=== PATIENT | male | born 1965 | race Two or more races ===

== ENCOUNTER 2019-09-29 11:13 | Emergency (ER) | payer MEDICAID, OTHER, SELFPAY ==
[~2019-09-29] VITALS: Ht 172.7 cm; Wt 72.7 kg
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
[2019-09-29] MEDS ORDERED: HTN (11:38)
[2019-09-29] MEDS ORDERED: NIFE-7 PO (11:42)
[2019-09-29] MEDS ORDERED: CARV-39 PO (11:42)
[2019-09-29] MEDS ORDERED: ONDANSETRON 2MG/ML, 2ML IVPush ONE (12:00)
[2019-09-29] MEDS ORDERED: HYDROmorphone 2 MG/ML, 1ML IVPush PRN (12:00)
[2019-09-29 12:18] LABS: MEAN CORPUSCULAR HEMOGLOBIN 31.4 pg (27.5-34.5); MEAN CORPUSCULAR HGB CONC 33.5 g/dL (33.2-36.2); MEAN CORPUSCULAR VOLUME 93.8 fL (81-97); MEAN PLATELET VOLUME 7.3 fL (7.4-10.4); PLATELET COUNT 340 x10^3/uL (130-400); RED BLOOD COUNT 5.57 x10^6/uL (4.38-5.82); RED CELL DISTRIBUTION WIDTH 13.3 % (9.4-14.8)
[2019-09-29 12:30] LABS: ALANINE AMINOTRANSFERASE 22 U/L (12-78); ALBUMIN 3.9 g/dL (3.4-5.0); ANION GAP 5 mmol/L (5-15); CHLORIDE 110 mmol/L (98-107); CREATININE 1.74 mg/dL (0.7-1.3)
[2019-09-29 12:32] LABS: ALKALINE PHOSPHATASE 103 U/L (45-117); BILIRUBIN,TOTAL 1.5 mg/dL (0.2-1.0); TOTAL PROTEIN 7.4 g/dL (6.4-8.2)
--- NOTE | 2019-09-29 12:33 | NUR ---
ABBIE RN BS FOR U/S IV ATTEMPT
[2019-09-29 12:45] LABS: BASOPHILS # (AUTO) 0.05 x10^3/uL (0-0.1); BASOPHILS % (AUTO) 0 % (0-1); EOSINOPHILS # (AUTO) 0.17 x10^3/uL (0-0.4); EOSINOPHILS % (AUTO) 1 % (1-7); LYMPHOCYTES # (AUTO) 2.32 x10^3/uL (1-3.4); LYMPHOCYTES % (AUTO) 12 % (22-44); MD SCAN; MONOCYTES % (AUTO) 3 % (2-9); NEUTROPHILS # (AUTO) 16.15 x10^3/uL (1.8-6.8); NEUTROPHILS % (AUTO) 84 % (42-75)
--- NOTE | 2019-09-29 12:53 | NUR ---
20ga Piv placed to right forearm w/ U.S. Patient then ambulated w/out difficulty to restroom to void-proved with UA cup
--- NOTE | 2019-09-29 13:18 | NUR ---
PT LYING QUIETLY ON BED, AWAITING CT. PT CURRENTLY PAIN-FREE.
--- NOTE | 2019-09-29 13:23 | NUR ---
CALLED CT; THEY WILL COME FOR PT SOON.
[2019-09-29 13:30] LABS: CULTURE INDICATED? NO; MICROSCOPIC AUTO
[2019-09-29 15:47] VITALS: BP 128/90
== END 2019-09-29 15:50 | disposition home or self-care (01) ==
LOC: ED 12:05
DX: R10.84 Generalized abdominal pain (principal); D72.829 Elevated white blood cell count, unspecified; R11.2 Nausea with vomiting, unspecified; F17.200 Nicotine dependence, unspecified, uncomplicated; Z90.5 Acquired absence of kidney
CPT/HCPCS: 36415; 74176; 80053; 81001; 83605; 83690; 85025; 93005; 99285